=== PATIENT | female | born 1980 | race Caucasian/White ===

== ENCOUNTER 2016-09-25 20:10 | Emergency (ER) | payer SELFPAY ==
[~2016-09-25] VITALS: Ht 162.6 cm; Wt 65.0 kg
[~2016-09-25 20:10] MED LIST: ASEN5TAB SL; COGE1INJ PO; NEUR400C PO; PANT20 PO; PROM25TA5 PO; PROP20TA3 PO
[2016-09-25 20:15] VITALS: BP 134/87; PULSE 106; RESP 18; O2SAT 97
[2016-09-25] MEDS ORDERED: HYDR50TA94 PO (20:30)
--- NOTE | 2016-09-25 20:37 | PD ---
HPI Chief Complaint: Alcohol/Drug Intoxication Time Seen by Provider: 20:33 Travel History International Travel<30 days: No Contact w/Intl Traveler<30days: No Traveled to known affect area: No History of Present Illness HPI The patient is a 36 year old female who presents to the [facility] emergency department with a history of being found by the side of the road, clammy, tachycardic, and confused. The patient reports on arrival that she is afraid. She reports "people in these places are trying to hurt me". She reports "I need help". She is unable to provide any details regarding exactly what type of help she needs. The patient reports that she has been drinking beer today. She denies using any other drugs, however on review of the electronic medical record, the patient has a history of methamphetamine use. The patient was provided a liter of normal saline IV fluids prior to her arrival and due to reported nausea she was given Zofran 4 mg IV by ambulance services. The patient reports that she does have a history of bipolar disorder and has been on Haldol, however she reports that it does not help. The patient otherwise is a poor historian and unwilling versus unable to provide any significant history on review of systems. [facility] Past Medical History Narrative Medical The patient's past medical history is obtained through the electronic medical record and reveals a history of bipolar disorder, methamphetamine use, alcohol abuse, history of headaches, hypertension, history of kidney stones, seizure disorder, peptic ulcer disease, history of a heart murmur, history of scoliosis , history of chronic back pain with herniated disks. Bipolar Disorder: Yes Anxiety: Yes Depression: Yes Cardiovascular Problems: Yes (MURMUR) Diminished Hearing: No GERD: Yes Headaches: Yes Hypertension: Yes Kidney Stones: Yes Musculoskeletal: Yes (SCOLiOSIS; BULDGING DISkS) Neurologic: Yes (DEPRESSION) Psychiatric: Yes Migraines: Yes Seizures: Yes Ulcer: Yes ?: Unknown : 2 Para: 2 Tubal Ligation: Yes Past Surgical History Narrative Surgical The patient's past surgical history is significant for a 2, bilateral tubal ligation, oral surgery. Section: Yes (X2) Gynecologic Surgery: Yes (C SECTIONS X2) Oral Surgery: Yes Social History Alcohol Use: Yes (reports beer today) Tobacco Use: Yes (1PPD) Substance Use: Yes (METH AND OTHERS X 10 YEARS) Allergies-Medications (Allergen,Severity, Reaction): Coded Allergies: Codeine (Verified Allergy, Severe, 09/25/16) Darvocet-N 100 (Verified Allergy, Severe, 09/25/16) Depakote (Verified Allergy, Severe, 09/25/16) blackouts Geodon (Verified Allergy, Severe, 09/25/16) Latex (Verified Allergy, Severe, HIVES, 09/25/16) Penicillin (Verified Allergy, Severe, 09/25/16) Uncoded Allergies: ALOE (Allergy, Severe, RASH, 07/05/09) Reported Meds & Prescriptions Reported Meds & Active Scripts Active Reported Effexor (Venlafaxine HCl) 75 Mg Tab 75 Mg PO DAILY Hydroxyzine HCl 50 Mg Tab 50 Mg PO TID PRN Narrative Medication The patient reports taking haloperidol daily. Review of Systems ROS Limitations: Refused, Poor Historian General / Constitutional: No: Fever Eyes: No: Visual changes HENT: No: Headaches Cardiovascular: No: Chest Pain or Discomfort Respiratory: No: Shortness of Breath Gastrointestinal: Positive: Nausea, No: Vomiting, Abdominal Pain Genitourinary: No: Dysuria Musculoskeletal: No: Pain Skin: No Rash Neurologic: Positive: Change in Mentation, Slurred Speech, No: Weakness, Focal Abnormalities, Sensory Disturbance Psychiatric: Positive: Disorder of Thought, Substance Abuse, No: Depression Endocrine: No: Polydipsia Hematologic/Lymphatic: No: Easy Bruising Physical Exam Narrative General: The patient is a well-developed well-nourished female, drowsy on arrival, with slurred speech and an odor of alcohol about her. Head and Neck exam: Head is normocephalic atraumatic. Eyes: EOMI, pupils are equal round and reactive to light. Nose: Midline septum with pink mucous membranes Mouth: Dentition unremarkable. Moist mucus membranes. Posterior oropharynx is not erythematous. No tonsillar hypertrophy. Uvula midline. Airway patent. Neck: No palpable lymphadenopathy. No nuchal rigidity. No thyromegaly. Cardiovascular: Sinus tachycardia in the low 100s without murmurs, gallops, or rubs. No pulse deficit to the extremities and simultaneous auscultation and palpation of her radial artery. Lungs: Clear to auscultation bilaterally. No wheezes, rhonchi, or rales. Abdomen: Soft, without tenderness to palpation in all 4 quadrants of the abdomen. No guarding, rebound, or rigidity. Normal bowel sounds are audible. No tenderness on palpation of McBurney's point. Negative Lunenburg sign. Extremities: No clubbing, cyanosis, or edema. 2+ pulses in all 4 extremities. No calf tenderness on palpation. Back: No spinous process tenderness to palpation. No costovertebral angle tenderness to palpation. Neurologic Exam: Grossly nonfocal. The patient is oriented to person, place, however not time or situation. The patient moves all extremities equally with 5 over 5 strength, intact sensation over all dermatomes, no facial asymmetry. The patient is able to talk in complete sentences. Skin Exam: No rash noted. Intact skin that is warm and dry. Data Data Last Documented VS Vital Signs Date Time Temp Pulse Resp B/P Pulse Ox O2 Delivery O2 Flow Rate FiO2 09/25/16 20:54 98 Room Air 09/25/16 20:15 106 18 134/87 Orders Electrocardiogram (09/25/16 20:38) Complete Blood Count With Diff (09/25/16 20:38) Comprehensive Metabolic Panel (09/25/16 20:38) Lipase (09/25/16 20:38) Urinalysis - C+S If Indicated (09/25/16 20:38) Thyroid Stimulating Hormone (09/25/16 20:38) Chest, Single Ap (09/25/16 20:38) Ct Brain W/O Iv Contrast(Rout) (09/25/16 20:38) Iv Access Insert/Monitor (09/25/16 20:38) Ecg Monitoring (09/25/16 20:38) Oximetry (09/25/16 20:38) Blood Glucose (09/25/16 20:38) Ed Urine Pregnancytest Poc (09/25/16 20:38) Drug Screen, Random Urine (09/25/16 20:38) Alcohol (Ethanol) (09/25/16 20:38) Salicylates (Aspirin) (09/25/16 20:38) Tylenol (Acetaminophen) (09/25/16 20:38) Sodium Chlor 0.9% 1000 Ml Inj (Ns 1000 M (09/25/16 20:45) Thiamine Inj (Thiamine Inj) (09/25/16 20:45) Psych Screen (09/25/16 20:54) Ibuprofen (Motrin) (09/26/16 01:30) Labs Laboratory Tests Test 09/25/16 20:43 White Blood Count 6.1 TH/MM3 Red Blood Count 2.94 MIL/MM3 Hemoglobin 8.5 GM/DL Hematocrit 25.9 % Mean Corpuscular Volume 88.0 FL Mean Corpuscular Hemoglobin 28.7 PG Mean Corpuscular Hemoglobin 32.6 % Concent Red Cell Distribution Width 12.5 % Platelet Count 117 TH/MM3 Mean Platelet Volume 7.7 FL Neutrophils (%) (Auto) 66.9 % Lymphocytes (%) (Auto) 28.2 % Monocytes (%) (Auto) 4.2 % Eosinophils (%) (Auto) 0.5 % Basophils (%) (Auto) 0.2 % Neutrophils # (Auto) 4.1 TH/MM3 Lymphocytes # (Auto) 1.7 TH/MM3 Monocytes # (Auto) 0.3 TH/MM3 Eosinophils # (Auto) 0.0 TH/MM3 Basophils # (Auto) 0.0 TH/MM3 CBC Comment DIFF FINAL Differential Comment Urine Color COLORLESS Urine Turbidity CLEAR Urine pH 5.5 Urine Specific Hayden 1.003 Urine Protein NEG mg/dL Urine Glucose (UA) NEG mg/dL Urine Ketones NEG mg/dL Urine Occult Blood MOD Urine Nitrite NEG Urine Bilirubin NEG Urine Urobilinogen LESS THAN 2.0 MG/DL Urine Leukocyte Esterase NEG Urine Squamous Epithelial <1 /hpf Cells Urine Bacteria RARE /hpf Urine Mucus FEW /lpf Microscopic Urinalysis Comment CULT NOT INDICATED Sodium Level 143 MEQ/L Potassium Level 3.7 MEQ/L Chloride Level 110 MEQ/L Carbon Dioxide Level 21.3 MEQ/L Anion Gap 12 MEQ/L Blood Urea Nitrogen 10 MG/DL Creatinine 0.89 MG/DL Estimat Glomerular Filtration 73 ML/MIN Rate Random Glucose 95 MG/DL Calcium Level 8.2 MG/DL Total Bilirubin 0.2 MG/DL Aspartate Amino Transf 14 U/L (AST/SGOT) Alanine Aminotransferase 22 U/L (ALT/SGPT) Alkaline Phosphatase 73 U/L Total Protein 6.9 GM/DL Albumin 3.7 GM/DL Lipase 115 U/L Thyroid Stimulating Hormone 0.702 uIU/ML 3rd Gen Salicylates Level 3.1 MG/DL Urine Opiates Screen NEG Acetaminophen Level LESS THAN 2.0 MCG/ML Urine Barbiturates Screen NEG Urine Amphetamines Screen NEG Urine Benzodiazepines Screen NEG Urine Cocaine Screen NEG Urine Cannabinoids Screen NEG Ethyl Alcohol Level 279 MG/DL MDM Medical Decision Making Medical Screen Exam Complete: Yes Emergency Medical Condition: Yes Medical Record Reviewed: Yes Interpretation(s) Last Impressions Head CT 09/25/162037 Signed Impressions: Service Date/Time: Sunday, September 25, 2016 22:48 - CONCLUSION: Negative noncontrast CT brain. Twan Esposito MD Chest X-Ray 09/25/162037 Signed Impressions: Service Date/Time: Sunday, September 25, 2016 20:59 - CONCLUSION: The lungs are clear. Twan Esposito MD Differential Diagnosis Alcohol intoxication, versus other substance intoxication, versus withdrawal syndrome, versus psychiatric disorder Narrative Course During the course of the patients emergency department visit, the patients history, examination, and differential diagnosis were reviewed with the patient. The patient had IV access obtained and blood work sent for analysis. The patient was placed on a school lunch monitor with oximetry and blood pressure monitoring. An EKG was ordered. The patient's EKG on arrival shows a sinus tachycardia rate of 106, nonspecific T-wave abnormalities, downsloping, T-wave inversions in lead 3, V1, no acute ST segment elevation, QRS duration is 78 ms, QTC 420 ms. The patient was initially provided normal saline IV fluids. The patient was given thiamine 100 mg IV. The patients laboratory studies were reviewed and remarkable for a white count of 6.1, hemoglobin 8.5, platelets 117 with a normal differential, in a patient after review the electronic medical record who has a history of hepatitis C which could explain these findings. CMP is remarkable is remarkable for a chloride of 110, GFR 73, calcium 8.2, AST 14, TSH within normal limits, lipase 115, urinalysis is remarkable for moderate occult blood, rare bacteria, culture not indicated. Urine drug screen is negative, acetaminophen less than 2, alcohol 279, salicylate 3.1. Radiology studies were reviewed and remarkable for a chest x-ray that shows no acute abdomen on a. CT scan of the brain shows no acute abdomen on a. At 11:33 PM, a call was placed out to the [facility] to find out whether a female bed was available for detox as the patient is requesting detox. Unfortunately, they reported that there are no beds available at this time. The patient will be observed in the emergency department for improvement in her mentation and ability to walk without assistance. The Patient will then be discharged home to follow-up with the [facility] for detox if she is cleared from a psychiatric standpoint by the psychiatric screener. The patient has been medically cleared for evaluation by the psychiatric screener. Diagnosis Primary Impression: Alcohol intoxication Qualified Code: F10.929 - Alcohol intoxication, with unspecified complication Additional Impression: Anxiety disorder Qualified Code: F41.9 - Anxiety disorder, unspecified type Zohra Penny MD Sep 25, 2016 20:37
[2016-09-25] MEDS ORDERED: THIAMINE INJ 100 MG in SODIUM CHLORIDE 0.9% INJ 100 ML IV ONE (20:45)
[2016-09-25] MEDS ORDERED: SODIUM CHLOR 0.9% 1000 ML INJ 1,000 ML IV ONE (20:45)
[2016-09-25 20:54] VITALS: O2SAT 98
--- NOTE | 2016-09-25 21:04 | RADRPT ---
EXAM DATE/TIME: 09/25/2016 20:59 [facility] COMPARISON: CHEST SINGLE AP, May 25, 2013, 20:07. INDICATIONS : Short of breath. MEDICAL HISTORY : None. SURGICAL HISTORY : None. ENCOUNTER: Initial ACUITY: 1 day PAIN SCORE: 0/10 LOCATION: Bilateral chest FINDINGS: A single view of the chest demonstrates the lungs to be symmetrically aerated without evidence of mas s, infiltrate or effusion. The cardiomediastinal contours are unremarkable. Osseous structures are intact. CONCLUSION: The lungs are clear. Twan Esopsito MD on September 25, 2016 at 21:02 Board Certified Radiologist. This report was verified electronically.
[2016-09-25 21:20] LABS: AUTOMATED NEUTROPHIL # 4.1 TH/MM3 (1.8-7.7); BASOPHIL % 0.2 % (0.0-2.0); EOSINOPHIL % 0.5 % (0.0-4.0); HEMATOCRIT 25.9 % (35.0-46.0); HEMO FLAGS DIFF FINAL; LYMPH % 28.2 % (9.0-44.0); LYMPHOCYTE # 1.7 TH/MM3 (1.0-4.8); MEAN CORPUSCULAR HEMOGLOBIN 28.7 PG (27.0-34.0); MEAN CORPUSCULAR HGB CONC 32.6 % (32.0-36.0); MONO % 4.2 % (0.0-8.0); NEUT % 66.9 % (16.0-70.0); PLATELET COUNT 117 TH/MM3 (150-450); RED BLOOD COUNT 2.94 MIL/MM3 (4.00-5.30); RED CELL DISTRIBUTION WIDTH 12.5 % (11.6-17.2); WHITE BLOOD COUNT 6.1 TH/MM3 (4.0-11.0)
[2016-09-25 21:24] LABS: BACTERIA, URINE RARE /hpf; BLOOD, URINE MOD (NEG); COMMENT (UR) CULT NOT INDICATED; CULTURE IF INDICATED CULT NOT INDICATED; GLUCOSE,URINE NEG (NEG); KETONE, URINE NEG (NEG); MUCUS URINE FEW /lpf (OCC); NITRITE,URINE NEG (NEG); PH, URINE 5.5 (5.0-8.5); SQUAMOUS EPITHELIAL CELL URINE <1 /hpf (0-5); URINE COLOR COLORLESS (YELLW/STRAW)
[2016-09-25 21:29] LABS: AMPHETAMINE, URINE NEG (NEG); BARBITURATES, URINE NEG (NEG); COCAINE, URINE NEG (NEG)
[2016-09-25 21:37] LABS: ANION GAP 12 MEQ/L (5-15); AST (GOT) 14 U/L (15-37); BICARBONATE 21.3 MEQ/L (21.0-32.0); BLOOD UREA NITROGEN 10 MG/DL (7-18); CHLORIDE 110 MEQ/L (98-107); GLOMERULAR FILTRATION RATE 73 ML/MIN (>89); POTASSIUM 3.7 MEQ/L (3.5-5.1); SODIUM (NA) 143 MEQ/L (136-145)
[2016-09-25 21:38] LABS: ALT (GPT) 22 U/L (10-53)
[2016-09-25 21:48] LABS: ACETAMINOPHEN LESS THAN 2.0 MCG/ML (10.0-30.0); ALKALINE PHOSPHATASE 73 U/L (45-117); TOTAL BILIRUBIN ADULT 0.2 MG/DL (0.2-1.0)
--- NOTE | 2016-09-25 23:01 | RADRPT ---
EXAM DATE/TIME: 09/25/2016 22:48 [facility] COMPARISON: No previous studies available for comparison. INDICATIONS : Altered mental status. Possible overdose. RADIATION DOSE: 35.25 CTDIvol (mGy) MEDICAL HISTORY : Hypertension. Gastroesophageal reflux disease. Substance abuse. SURGICAL HISTORY : Tubal ligation. ENCOUNTER: Initial ACUITY: 1 day PAIN SCALE: 0/10 LOCATION: cranial TECHNIQUE: Multiple contiguous axial images were obtained of the head. Using automated exposure control and adj ustment of the mA and/or kV according to patient size, radiation dose was kept as low as reasonably a chievable to obtain optimal diagnostic quality images. FINDINGS: CEREBRUM: The ventricles are normal for age. No evidence of midline shift, mass lesion, hemorrhage or acute in farction. No extra-axial fluid collections are seen. POSTERIOR FOSSA: The cerebellum and brainstem are intact. The 4th ventricle is midline. The cerebellopontine angle i s unremarkable. EXTRACRANIAL: The visualized portion of the orbits is intact. SKULL: The calvaria is intact. No evidence of skull fracture. CONCLUSION: Negative noncontrast CT brain. Twan Esposito MD on September 25, 2016 at 22:58 Board Certified Radiologist. This report was verified electronically.
[2016-09-26] MEDS ORDERED: IBUPROFEN 600 MG TAB PO ONE (01:30)
[2016-09-26] MEDS ORDERED: VENL75TA PO (02:00)
--- NOTE | 2016-09-26 19:00 | EKG ---
Date Performed: 09/25/2016 Time Performed: 21:01:42 PTAGE: 36 years EKG: SINUS TACHYCARDIA Since previous tracing, no significant change noted ABNORMAL RHYTHM ECG PREVIOUS TRACING : 08/15/2012 09.40 DOCTOR: Dagoberto Penny Interpretating Date/Time 09/26/2016 18:58:47
== END 2016-09-26 02:08 | disposition home or self-care (01) ==
LOC: NEPE 20:10 → NEPD 09-26 02:08
DX: F10.129 Alcohol abuse with intoxication, unspecified (principal); F41.9 Anxiety disorder, unspecified; F31.9 Bipolar disorder, unspecified; I10 Essential (primary) hypertension; F17.210 Nicotine dependence, cigarettes, uncomplicated; Y90.8 Blood alcohol level of 240 mg/100 ml or more
CPT/HCPCS: 70450; 71010; 80053; 80307; 81001; 83690; 84443; 84703; 85025; 93005; 96365; 99285; J3411; J7030